=== PATIENT | female | born 1975 | race Caucasian/White ===

== ENCOUNTER 2016-12-16 05:56 | Observation (INO) ==
[~2016-12-16 05:56] MED LIST: *HR* Morphine 2 MG/ML SYRINGE ONE; 0.9 % Sodium Chloride 1,000 ML ONE; Ondansetron 4 MG/2 ML VIAL ONE
[2016-12-16] MEDS ORDERED: *HR* Morphine 2 MG/ML SYRINGE IVP ONE (05:58)
[2016-12-16] MEDS ORDERED: Ondansetron 4 MG/2 ML VIAL IVP ONE (05:58)
[2016-12-16] MEDS ORDERED: 0.9 % Sodium Chloride 1,000 ML IVC ONE (05:58)
--- NOTE | 2016-12-16 06:27 | Emergency Department Note ---
START Narrative - START START: I examined this patient and my medical decision-making was reviewed with the PA. I agree with the documented findings, disposition and treatment plan as described except to the extent set forth below. Minimal right CVA tenderness. Chills w/o fever. Vomiting. +UTI. CT pending. Suspect pyelo, will make sure no stone.
--- NOTE | 2016-12-16 06:38 | Emergency Department Note ---
Disposition Clinical Impression: Right ureteral calculus UTI (urinary tract infection) Qualifiers: Urinary tract infection type: acute cystitis Hematuria presence: with hematuria Qualified Code(s): N30.01 - Acute cystitis with hematuria Disposition: Admitted As Inpatient Condition: Fair Referrals: Agata Paredes MD [Primary Care Provider] - Forms: Work/School Release, ED Satisfaction Letter Abdominal Pain HPI - General Chief Complaint: ED Abdominal Pain Stated Complaint: abd pain Time Seen by Provider: 12/16/16 06:04 Source: patient Mode of arrival: private vehicle Limitations: no limitations Nursing Notes Reviewed: Yes Vital Signs Reviewed: Yes - History of Present Illness Pt Subjective Complaint: abdominal pain, flank pain Onset (ago): hour(s) Consistency: constant Location: RLQ, R flank Pain Severity: severe Quality: stabbing, sharp Migration to: R flank Improves with: nothing Worsens with: nothing Context: other (has been staying with brother who is in palliative care) Associated symptoms: Reports: nausea, vomiting, chills. Denies: diarrhea, fever , constipation - Related Data Home Medications Medication Instructions Recorded Confirmed Rivaroxaban [Xarelto] 15 mg PO DAILY 12/16/16 12/16/16 Allergies Allergy/AdvReac Type Severity Reaction Status Date / Time hydrocodone [From Vicodin] AdvReac Nausea Verified 12/16/16 06:56 metformin AdvReac Hallucinati Verified 12/16/16 06:56 ng All systems ED: reviewed and negative except as stated. Constitutional: Denies: fever, chills, weakness Cardiovascular: Denies: chest pain, palpitations, dyspnea on exertion, orthopnea , edema, syncope Respiratory: Denies: cough, dyspnea, wheezes Gastrointestinal: Reports: abdominal pain, nausea, vomiting (x 3, nonbloody, nonbilious). Denies: diarrhea, constipation, hematemesis, melena, hematochezia Genitourinary: Reports: dysuria, frequency, hematuria. Denies: urgency, discharge, abnormal menses, dyspareunia Musculoskeletal: Denies: back pain, neck pain, joint swelling, arthralgia, myalgia Integumentary: Denies: rash, abrasion, lesions Neurological: Denies: headache, weakness, confusion, abnormal gait, vertigo Endocrine: Denies: fatigue Hematological/Lymphatic: Reports: easy bleeding (On Xarelto) Abdominal Pain PMH - Past Medical History Medical history: Reports: no medical history, pulmonary embolus, thyroid disease , other Female Surgical History: Reports: cholecystectomy ADMINISTRATIVE ASSISTANT RECEPTIONIST history: Reports: no ADMINISTRATIVE ASSISTANT RECEPTIONIST history Psychiatric history: Reports: no psych history - Social History Smoking status: Current every day smoker Alcohol use: Reports: none Drug use: Reports: none Physical Exam - General Limitations: no limitations General appearance: alert, in no apparent distress - Head Head exam: atraumatic, normocephalic, normal inspection - Eye Eye exam: Present: normal appearance, PERRL. Absent: scleral icterus, conjunctival injection, periorbital swelling - ENT ENT exam: mucous membranes moist - Neck Neck exam: Present: normal inspection, full ROM, trachea midline - Chest Chest inspection: Present: normal inspection - Respiratory Respiratory exam: Present: normal lung sounds bilaterally. Absent: respiratory distress, wheezes, stridor - Cardiovascular Cardiovascular exam: Present: regular rate, normal rhythm, normal heart sounds - Abdominal Exam Abdominal exam: Present: soft, tenderness, normal bowel sounds. Absent: distention, guarding, rebound, rigidity, mass Abdominal tenderness: Present: RUQ, RLQ, suprapubic, diffuse, mild - Extremities Exam Extremities exam: Present: normal inspection - Back Exam Back exam: Present: normal inspection, full ROM, CVA tenderness (R). Absent: CVA tenderness (L) - Neurological Exam Neurological exam: Present: alert, oriented X3, CN II-XII intact, normal gait - Psychiatric Psychiatric exam: Present: normal affect, normal mood - Skin Skin exam: Present: warm, dry, intact, normal color Course Course Narrative: Patient had an acute onset of right lower quadrant abdominal pain, right flank pain, and hematuria. She is on Xarelto and has had hematuria in the past. She denies history of kidney stones. We will check labs and CT. Patient's urinalysis is positive for nitrates, white blood cells and too numerous to count red blood cells, positive for bacteria as well. Urine test is negative. Blood cell count is 15.6. The remainder of her labs are unremarkable. CT of abdomen and pelvis noncontrast was read by radiologist as positive for a 3 mm obstructing right ureteral stone in the mid ureter with moderate [place]. The patient's pain and nausea are improved but not completely gone. Vitals are improved. She will required admission. Given the presence of an obstructing stone with infection in the urine. The urologist on-call, Dr. Mccallum was consulted. He will accept patient for admission.
[2016-12-16 08:09] LABS: Hematocrit 43.8 % (35.3-44.9); Hemoglobin 14.4 g/dL (11.5-15.4); Immature Granulocytes % 0.5 % (0-4); Lymphocytes % 18.8 %; Mean Corpuscular HGB Conc 32.9 g/dL (31.6-35.5); Mean Corpuscular Hemoglobin 29.6 pg (28.0-33.3); Mean Corpuscular Volume 90.1 fL (83.0-100.0); Mean Platelet Volume 11.2 fL (9.4-12.4); Platelet Count 370 K/mcL (140-400); Red Blood Count 4.86 M/mcL (3.82-4.97); Segmented Neutrophils % 73.4 %
[2016-12-16 08:10] LABS: Basophils # 0.1 K/mcL (0.0-0.2); Basophils % 0.7 %; Clarity,Urine Turbid (Clear); Color,Urine Red (Yellow); Eosinophils # 0.2 K/mcL (0.0-0.6); Eosinophils % 1.5 %; Glucose,Urine (UA) Normal (Normal); Monocytes # 0.8 K/mcL (0.0-1.3); Monocytes % 5.1 %; Neutrophils # 11.5 K/mcL (1.6-8.9)
[2016-12-16 08:11] LABS: Bilirubin,Urine Large (Negative); Blood,Urine Large (Negative); Ketones,Urine 15 mg/dL (Negative); Leukocyte Esterase,Urine Moderate (Negative); Nitrite,Urine Positive (Negative); Protein,Urine 100 mg/dL (Neg-Trace); Specific Gravity,Urine 1.017 (1.010-1.025); Urobilinogen,Urine Normal (Normal)
[2016-12-16] MEDS ORDERED: *HR* HYDROmorphone (PF) 1 MG/ML SYRINGE IVP PRN ×3 (08:11→19:16)
[2016-12-16] MEDS ORDERED: *HR* Promethazine 25 MG/ML VIAL IVP PRN ×3 (08:11→19:16)
[2016-12-16] MEDS ORDERED: *HR* Morphine 2 MG/ML SYRINGE IVP PRN ×2 (08:11→19:16)
[2016-12-16] MEDS ORDERED: Ondansetron 4 MG/2 ML VIAL IVP PRN ×2 (08:11→19:16)
[2016-12-16] MEDS ORDERED: Naloxone 0.4 MG/ML INJ IVP PRN ×2 (08:11→19:16)
[2016-12-16 08:12] LABS: Bacteria,Urine Moderate per hpf (None-Few); RBC,Urine TNTC per hpf (0-3); Squamous Epithelial Cell,Urine Few per lpf (None-Few)
[2016-12-16 08:14] LABS: INR 1.3; Prothrombin Time 13.8 Seconds (9.4-12.1)
[2016-12-16 08:15] LABS: Activated Partial Thrombo Time 34.6 Seconds (26.0-36.0)
[2016-12-16] MEDS ORDERED: 0.9 % Sodium Chloride 1,000 ML IVC SCH ×2 (08:15→19:16)
[2016-12-16 08:16] LABS: BUN/Creatinine Ratio 19 (6-26); Blood Urea Nitrogen 16 mg/dL (7-20); Carbon Dioxide 25 mEq/L (19-29); Chloride 103 mEq/L (98-109); Glucose 143 mg/dL (70-99); Osmolality,Calculated 294 (280-300); Sodium 140 mEq/L (136-145); eGFR For African Americans > 60 (> 60); eGFR For Non-African Americans > 60 (> 60)
[2016-12-16 08:17] LABS: Alanine Aminotransferase 32 Units/L (0-55); Alkaline Phosphatase 103 Units/L (38-126); Aspartate Amino Transferase 22 Units/L (5-34); Bilirubin,Total 0.4 mg/dL (0.2-1.2)
[2016-12-16 08:18] LABS: Albumin/Globulin Ratio 1.1 (1.1-2.2); Globulin 3.7 g/dL (2.4-3.5); Lipase 21 Units/L (8-78); Total Protein 7.7 g/dL (6.0-8.3)
[2016-12-16 08:34] LABS: Bilirubin,Direct 0.2 mg/dL (0.0-0.5); Bilirubin,Indirect 0.2 mg/dL (0.0-1.2)
[2016-12-16] MEDS ORDERED: Lidocaine -MPF 4% 5 ML AMPUL ONE (17:24)
[2016-12-16] MEDS ORDERED: *HR* Succinylcholine 200 MG/10 ML VIAL IVP ONE (17:24)
[2016-12-16] MEDS ORDERED: *HR* Propofol 200 MG/20 ML VIAL IVP ONE (17:24)
[2016-12-16] MEDS ORDERED: Lidocaine -MPF 2% 2 ML VIAL ONE (17:24)
[2016-12-16] MEDS ORDERED: *HR* Rocuronium Bromide 50 MG/5 ML VIAL ONE (17:24)
[2016-12-16] MEDS ORDERED: Dexamethasone 4 MG/ML VIAL ONE (17:24)
[2016-12-16] MEDS ORDERED: Ondansetron 4 MG/2 ML VIAL ONE (17:24)
--- NOTE | 2016-12-16 17:25 | Anesthesia Evaluation PreOp ---
Date of Encounter: 12/16/16 Time of Encounter: 17:23 - Past History Planned Operation: r USE/stent Cardiac History: Denies any Significant Hx Pulmonary History: Smoker, Other (h/o pe) REFRIGERATION SYSTEM INSTALLER History: Denies Any Significant HX Other Medical History: Thyroid Anesthesia History: No Prior Anesthetic Complications, Past Anesthesia ( cholecyst) Alcohol Use: none Drug use: none Medications and Allergies Rivaroxaban [Xarelto] 15 mg PO DAILY 12/16/16 [History] Allergies hydrocodone [From Vicodin] Adverse Reaction (Verified 12/16/16 06:56) Nausea metformin Adverse Reaction (Verified 12/16/16 06:56) Hallucinating - Meds/Allergy Pre-op Review Medications Reviewed: Yes (still on xarelto, surgeon aware) Allergies Reviewed: Yes Beta Blockers on Current Med List: No Anesthesia Results - Labs 12/16/16 04:26 12/16/16 04:26 - Imaging EKG: report reviewed (sr) Anesthesia Exam O2 Sat Height 1.63 m Weight 68.039 kg O2 Sat by Pulse Oximetry 96 O2 Sat by Pulse Oximetry 93 Vital Signs Resp BP 16 130/71 12/16/16 07:24 12/16/16 07:24 Height: 1.63 Weight: 68 NPO (# of Hours): >8 - HEENT Pupil (Motor): Pupils equal, EOMI Mallampati: II Teeth: Normal Oral Opening: Greater than 3 - REFRIGERATION SYSTEM INSTALLER LOC: Oriented REFRIGERATION SYSTEM INSTALLER Motor: Normal RUE, Normal LUE, Normal RLE, Normal LLE, Normal Face REFRIGERATION SYSTEM INSTALLER Sensory: Normal: RUE, LUE, RLE, LLE, Face - Cardiac Rhythm: Regular Murmur: None - Pulmonary Breath Sounds: bilateral Clear Respiratory Effort: Symmetrical Anesthesia Assess/Plan ASA Score: 3 Modified [place] Scale for Level of Consciousness: Cooperative, oriented, and tranquil Anesthetic Plan: General Monitoring Plan: Standard Monitors Recovery Plan: PACU
--- NOTE | 2016-12-16 18:05 | Urology History & Physical ---
Date of Encounter: 12/16/16 Time of Encounter: 18:02 Assessment and Plan (1) Ureteral stone with hydronephrosis Current Visit: Yes Status: Acute We discussed that her symptoms are likely from the 2 mm ureteral calculi. Patient has elected for intervention prior to discharge. She does not feel comfortable trial of passage. We'll attempt a ureteroscopic stone extraction. If this requires any significant manipulation will likely just place stent and performed a staged because of the UTI and Xarelto. Patient understands the risks of the procedure which includes injury to the urinary tract, UTI, worsening infection, inability to retrieve stone (2) UTI (urinary tract infection) Current Visit: Yes Status: Acute Qualifiers: Urinary tract infection type: acute cystitis Hematuria presence: with hematuria Qualified Code(s): N30.01 - Acute cystitis with hematuria History of Present Illness Chief complaint: rt flank pain HPI: Ms. Olivarez is a 41 year old female no fever. 2 mm right ureteral stone. She had gross hematuria 1 month ago but no pain. She has had intractable pain and nausea vomiting recently. Possible UTI. No dysuria. Past Med Surg Social Fam HX - Past Medical History Medical history: no medical history, pulmonary embolus, thyroid disease, other Psychiatric history: no psych history - Social History Smoking Status: Current every day smoker Smokeless Tobacco Status: No Alcohol use: none Drug use: none Medications and Allergies Rivaroxaban [Xarelto] 15 mg PO DAILY 12/16/16 [History] Allergies hydrocodone [From Vicodin] Adverse Reaction (Verified 12/16/16 06:56) Nausea metformin Adverse Reaction (Verified 12/16/16 06:56) Hallucinating Review of Systems - Constitutional no fever(s), no malaise - EENT Nose, mouth and throat: no dizziness - Cardiovascular no chest pain - Respiratory no cough - Gastrointestinal abdominal pain, nausea, vomiting - Genitourinary Genitourinary: flank pain - Musculoskeletal back pain - Integumentary no erythema - Neurological no confusion - Psychiatric no anxiety - Hematologic/Lymphatic easy bleeding - Allergic/Immunologic no throat swelling Exam Initial Vital Signs Resp BP 16 130/71 12/16/16 07:24 12/16/16 07:24 - General physical appearance Present: well developed, no distress - Eyes Present: PERRL - ENT Present: normal nares - Neck Present: no masses - Respiratory Present: normal respiratory effort - Cardiovascular Cardiovascular exam IM: RRR - Abdomen Abdomen: Present: soft - Genitourinary Present: normal external genitalia - Integumentary Present: no rash - Neurologic Present: normal coordination - Musculoskeletal Present: normal gait Urology Results - Labs 12/16/16 04:26 12/16/16 04:26 Abnormal lab results WBC 15.7 K/mcL (4.3-11.1) H 12/16/16 04:26 Neutrophils # 11.5 K/mcL (1.6-8.9) H 12/16/16 04:26 PT 13.8 Seconds (9.4-12.1) H 12/16/16 04:26 Glucose 143 mg/dL (70-99) H 12/16/16 04:26 Globulin 3.7 g/dL (2.4-3.5) H 12/16/16 04:26 Urine Color Red (Yellow) A 12/16/16 04:26 Urine Clarity Turbid (Clear) A 12/16/16 04:26 Urine Protein 100 mg/dL (Neg-Trace) H 12/16/16 04:26 Urine Ketones 15 mg/dL (Negative) H 12/16/16 04:26 Urine Blood Large (Negative) H 12/16/16 04:26 Urine Nitrite Positive (Negative) A 12/16/16 04:26 Urine Bilirubin Large (Negative) H 12/16/16 04:26 Ur Leukocyte Esterase Moderate (Negative) H 12/16/16 04:26 Urine Microscopic RBC TNTC per hpf (0-3) H 12/16/16 04:26 Urine Microscopic WBC 5-15 per hpf (0-3) H 12/16/16 04:26 Urine Bacteria Moderate per hpf (None-Few) H 12/16/16 04:26 Ur Culture Indicated? YES (NO) A 12/16/16 04:26 All other labs normal.
--- NOTE | 2016-12-16 18:13 | Operative Note ---
Date of procedure: 12/16/16 Pre-op diagnosis: right ureteral stone Post-op diagnosis: same Procedure: Right ureteroscopic stone extraction. Right retrograde pyelogram. Right double- J stent placement. Anesthesia: GETA Surgeon: Sb Mccallum Specimen: stone Condition: stable Disposition: PACU Procedure in Detail: PROCEDURE IN DETAIL: Patient was taken back to the operating room, positioned supine on the operating table. Anesthesia was applied without complication. They were moved into dorsal lithotomy. Careful attention was maintained to cushion all pressure points for patient's safety. They were prepped and draped in sterile fashion. Time-out was performed with the proper patient and procedure. A 21-[place] rigid cystoscope was inserted into the bladder without difficulty. Systematic examination of bladder revealed no abnormalities. The ureteral orifice was cannulated using a 5-Bermudian ureteral Catheter and a retrograde pyelogram was performed using Isovue. A filling defect was identified which corresponded to the stone. At that point, a zip wire was placed through the 5-B[place]udian and confirmed in the renal pelvis with fluoroscopy. An 8-10 dilator was then placed over the zip wire to passively dilate the ureteral orifice. A semi-rigid ureteroscope was carefully inserted into the bladder and guided into the ureteral oriface. At that point, the stone was encountered and I able to basket out without laser lithotripy. A 4.8 x 26 ureteral stent was placed over the zip wire under fluoroscopy without complication. the stone was sent for stone analysis. no string was attached.
--- NOTE | 2016-12-16 18:16 | Discharge Summary ---
Date of Encounter: 12/16/16 Time of Encounter: 18:13 - Discharge Diagnosis (1) Ureteral stone with hydronephrosis Priority: Primary Status: Resolved (2) UTI (urinary tract infection) Priority: Secondary Status: Acute Qualifiers: Urinary tract infection type: acute cystitis Hematuria presence: with hematuria Qualified Code(s): N30.01 - Acute cystitis with hematuria - Discharge Medications Prescriptions: Phenazopyridine HCl [Pyridium] 200 mg PO TIDAC PRN #30 tab PRN Reason: burning with urination Sulfamethoxazole/Trimeth DS [Bactrim DS] 1 each PO BID #14 tablet Tramadol HCl [Ultram] 50 mg PO QID PRN #30 tab PRN Reason: Pain Home Medications: Phenazopyridine HCl [Pyridium] 200 mg PO TIDAC PRN #30 tab 12/16/16 [Rx] Rivaroxaban [Xarelto] 15 mg PO DAILY 12/16/16 [History] Sulfamethoxazole/Trimeth DS [Bactrim DS] 1 each PO BID #14 tablet 12/16/16 [Rx] Tramadol HCl [Ultram] 50 mg PO QID PRN #30 tab 12/16/16 [Rx] Allergies/Adverse Reactions: Allergies hydrocodone [From Vicodin] Adverse Reaction (Verified 12/16/16 06:56) Nausea metformin Adverse Reaction (Verified 12/16/16 06:56) Hallucinating Date of admission: 12/16/16 07:12 Primary care physician: Agata Paredes Discharging clinician: Sb Mccallum Anticipated date of discharge: 12/16/16 - Patient Status Disposition: Home, Self-Care Condition: Good Functional capacity at discharge: independent ambulation Overall status at discharge: patient is progressing back to baseline - Discharge Instructions Follow Up With: Agata Paredes MD [Primary Care Provider] - Sb Mccallum MD [Partnered Physician] - (Next week for cystoscopy and stent removal) Additional Instructions: Expect stent discomfort including urgency, frequency, burning with urination and blood in the urine. Call if excessive. Call if fever over 101 or other signs of infection. Stent will be removed in the office next week - Diet and Activity Activity: increase activity as tolerated Diet: advance to your usual diet - Hospital Course Hospital course: Ms. Olivarez is a 41 year old female 2 mm right ureteral stone and possible UTI. Status post stone extraction and stent. Plan to discharge when symptoms controlled - Time Spent with Patient Total time spent providing and/or coordinating discharge services: Exam Initial Vital Signs Resp BP 16 130/71 12/16/16 07:24 12/16/16 07:24 - General physical appearance Present: well developed, no distress
[2016-12-16] MEDS ORDERED: *HR* FentaNYL (PF) 100 MCG/2 ML VIAL ONE (18:22)
[2016-12-16] MEDS ORDERED: *HR* Phenylephrine 10 MG/ML VIAL ONE (18:39)
[2016-12-16] MEDS ORDERED: Ketorolac 15 MG/ML VIAL IVP ONE (18:46)
[2016-12-16] MEDS ORDERED: *HR* Labetalol 100 MG/20 ML MDV IVP PRN (18:46)
--- NOTE | 2016-12-16 19:34 | Anesthesia Evaluation Post Op ---
Date of Encounter: 12/16/16 Time of Encounter: 19:31 - Vital Signs Vital Signs: Vital Signs/O2 Sat, Most Current Temp Pulse Resp BP Pulse Ox 97.2 F L 80 16 120/73 97 12/16/16 18:58 12/16/16 19:18 12/16/16 19:18 12/16/16 19:18 12/16/16 19:18 - Lungs Lungs: Clear Ascult./Percussion - Airway Airway: Non-obstructed - Cardiovascular Regular Rate - Mental Status Mental Status: Alert & Oriented, Answers Appropriately - Pain Pain Scale: 2 Pain Scale used: Numeric (1 - 10) - Nausea Vomiting Nausea Vomiting: Not Present - Hydration Hydration: Ice chips, Has not voided - Discharge PostOp Status: Transfer Patient to floor
[2016-12-16 21:13] VITALS: BP 133/83
[2016-12-17] MEDS ORDERED: *HR* Rivaroxaban 15 MG TABLET PO SCH (09:00)
== END 2016-12-16 21:30 | disposition home or self-care (01) ==
LOC: 3ANU 05:56 → EMEROO 05:56 → 3ANU 07:48 → 2ANU 09:35
PROVIDERS: ADMIT Urology; ATTEND Family Medicine